=== PATIENT | female | born 1985 | race Caucasian/White ===

== ENCOUNTER 2020-02-01 13:25 | Inpatient (IN) | payer OTHER ==
[2020-02-01 14:29] VITALS: BMI 30.7
[2020-02-01 14:41] LABS: BASO % 0.6 % (0-2.0); EOS % 0.7 % (0-4.5); HEMATOCRIT 33.7 % (32.4-45.2); HEMOGLOBIN 11.6 GM/dL (10.7-15.3); LYMPH % 16.6 % (8-40); MCHC 34.5 g/dl (32.0-36.0); MEAN CELL VOLUME 95.5 fl (80-96); MONO % 8.3 % (3.8-10.2); NEUT % 73.8 % (42.8-82.8); PLATELET COUNT 166 K/MM3 (134-434); RBC 3.53 M/mm3 (3.60-5.2); RDW 14.6 % (11.6-15.6); WHITE BLOOD COUNT 12.3 K/mm3 (4.0-10.0)
[2020-02-01 14:53] LABS: INR 0.87 (0.83-1.09); PROTHROMBIN TIME (PATIENT) 10.3 SEC (9.7-13.0)
[2020-02-01 14:55] LABS: ACTIVATED PTT 22.3 SECONDS (25.2-36.5)
[2020-02-01 15:10] LABS: CALCIUM 8.8 mg/dL (8.5-10.1); CREATININE 0.5 mg/dL (0.55-1.3); POTASSIUM 3.9 mmol/L (3.5-5.1)
[2020-02-01] MEDS ORDERED: SODIUM CHLORIDE 100 ML IVPB ONE (15:56)
[2020-02-01] MEDS ORDERED: AMPICILLIN SODIUM 2 GM VIAL ONE (15:56)
[2020-02-01] MEDS ORDERED: AMPICILLIN - 2 GM in SODIUM CHLORIDE 100 ML IVPB ONE (16:06)
--- NOTE | 2020-02-01 16:12 | HP ---
Past Medical History - Admission Chief Complaint: Labor pain History of Present Illness: 34 yo @ 39 weeks gestation, EDC 02/08/20. admitted for labor pain. Upon admission she was 5cm dilated with intact membrane. History Source: Patient Limitations to Obtaining History: No Limitations - Past Medical History ...: 2 ...Para: 1 ...Term: 1 ...LMP: 05/04/19 ... Weeks Gestation by Dates: 38.5 ...EDC by Dates: 02/10/20 ...EDC by Sono: 02/06/20 - Past Surgical History Hx Myomectomy: No Hx Transabdominal Cerclage: No - Smoking History Smoking history: Never smoked Have you smoked in the past 12 months: No Aproximately how many cigarettes per day: 0 - Alcohol/Substance Use Hx Alcohol Use: No - Social History Usual Living Arrangement: Yes: With Significant Other History of Recent Travel: No Home Medications - Allergies Allergies/Adverse Reactions: Allergies Allergy/AdvReac Type Severity Reaction Status Date / Time No Known Allergies Allergy Verified 02/01/20 14:17 - Home Medications Home Medications: Ambulatory Orders Tablet 1 tab PO DAILY 02/01/20 Family Medical History Family History: Unremarkable Review of Systems - Review of Systems Constitutional: reports: No Symptoms HENT: reports: No Symptoms Neck: reports: No Symptoms Cardiovascular: reports: No Symptoms Respiratory: reports: No Symptoms Gastrointestinal: reports: No Symptoms Genitourinary: reports: Pain Musculoskeletal: reports: No Symptoms Neurological: reports: No Symptoms Psychiatric: reports: No Symptoms Pain Intensity: 5 Physical Exam - Maternity Vital Signs: Vital Signs Temperature 98.1 F 02/01/20 14:22 Pulse Rate 79 02/01/20 14:22 Respiratory Rate 02/01/20 14:22 Blood Pressure 134/80 02/01/20 14:22 O2 Sat by Pulse Oximetry (%) Constitutional: Yes: Well Nourished Eyes: Yes: Conjunctiva Clear HENT: Yes: Atraumatic Neck: Yes: Supple Cardiovascular: Yes: Regular Rate and Rhythm Lungs: Clear to auscultation - Abdominal Exam/OB Number of Fetuses: Single Presentation: Vertex Contractions: Yes - Vaginal Exam/OB Vaginal Bleeding: No Dilatation (cm): 5 Effacement (%): 80 Amniotic Membrane Status: Intact Presentation: Vertex/Position Station: -2 - Physical Exam Musculoskeletal: Yes: WNL Extremities: Yes: WNL ...Motor Strength: WNL Psychiatric: Yes: Alert, Oriented - Labs Lab Results: CBC, BMP 02/01/20 14:29 02/01/20 14:29 Problem List - Problems (1) 39 weeks gestation of Code(s): Z3A.39 - 39 WEEKS GESTATION OF Assessment/Plan 39 weeks gestation Admit to L&D Analgesia as needed Anticipate
[2020-02-01] MEDS ORDERED: ELECTROLYTE-148 SOLN 1,000 ML IV SCH (16:15)
[2020-02-01] MEDS ORDERED: OXYTOCIN 30 UNITS in 0.9% NS 30 UNIT/500 ML INFUS.BAG IVPB SCH (17:45)
[2020-02-01] MEDS ORDERED: OXYTOCIN 30 UNITS in 0.9% NS 30 UNIT/500 ML INFUS.BAG IVPB ONE (18:08)
[2020-02-01] MEDS ORDERED: BISACODYL 10 MG SUPP.RECT RC PRN (19:43)
[2020-02-01] MEDS ORDERED: BENZOCAINE 28 GM HEMORRHOIDAL OINTMENT TP PRN (19:43)
[2020-02-01] MEDS ORDERED: WITCH HAZEL 50% (TUCKS) 40 PAD/JAR PAD TP PRN (19:43)
[2020-02-01] MEDS ORDERED: BENZOCAINE 20% 57 GM BOTTLE TP PRN (19:43)
[2020-02-01] MEDS ORDERED: METHYLERGONOVINE MALEATE 0.2 MG/1 ML AMP IM PRN (19:43)
[2020-02-01] MEDS ORDERED: OXYTOCIN 20 UNITS in 0.9% NS 20 UNIT/1,000 ML INFUS.BAG IV SCH (19:45)
--- NOTE | 2020-02-01 19:48 | PN ---
Delivery - Delivery Vaginal Delivery: Spontaneous Episiotomy/Laceration: 1st degree EBL (cc): 300 Delivery, Single - 1 Minute Total Score: 9 5 Minutes Total Score: 9 - Feeding Plan Initial Plan: Elected not to breastfeed exclusively throughout hospitalization Remarks - Remarks Remarks: Normal spontaneous vaginal delivery of a live infant over first degree laceration. Nose / Oropharynx suctioned @ perineum. Cord clamped and cut. Baby handed to mother then to nurse. Laceration repaired with 2.0 Chromic. Mother in stable condition.
[2020-02-01] MEDS ORDERED: OXYTOCIN 20 UNITS in 0.9% NS 20 UNIT/1,000 ML INFUS.BAG IV ONE (20:06)
[2020-02-01] MEDS: FERROUS SO4 325 MG TABLET (FP) PO SCH (23:00)
[2020-02-02] MEDS: ACETAMINOPHEN 325 MG TABLET (FP) PO PRN ×3 (01:31→17:30)
[2020-02-02] MEDS: IBUPROFEN 600 MG TABLET (FP) PO PRN ×3 (01:31→17:30)
[2020-02-02 08:59] LABS: BASO % 0.4 % (0-2.0); HEMATOCRIT 32.2 % (32.4-45.2); HEMOGLOBIN 10.8 GM/dL (10.7-15.3); LYMPH % 16.9 % (8-40); MCH 31.9 pg (25.7-33.7); MCHC 33.5 g/dl (32.0-36.0); MEAN CELL VOLUME 95.3 fl (80-96); MEAN PLT VOLUME 9.6 fl (7.5-11.1); MONO % 9.3 % (3.8-10.2); NEUT % 72.4 % (42.8-82.8); PLATELET COUNT 162 K/MM3 (134-434); RBC 3.37 M/mm3 (3.60-5.2); RDW 14.4 % (11.6-15.6); WHITE BLOOD COUNT 13.2 K/mm3 (4.0-10.0)
[2020-02-02] MEDS: FERROUS SO4 325 MG TABLET (FP) PO SCH ×2 (10:31→21:42)
[2020-02-02] MEDS: PRENATAL VITAMINS W/ FOLIC ACID TABLET (FP) PO SCH (10:31)
--- NOTE | 2020-02-02 15:38 | PN ---
Post Progress Note - Subjective Subjective: 34 yo Para 2 status post normal vaginal delivery, seen and evaluated. Doing well. Post Day: 1 Type of Delivery: Vital Signs: Vital Signs Temperature 98 F 02/02/20 11:56 Pulse Rate 64 02/02/20 11:56 Respiratory Rate 18 02/02/20 11:56 Blood Pressure 106/63 02/02/20 11:56 O2 Sat by Pulse Oximetry (%) Breast Exam: Yes: Soft Uterus: Yes: Fundus Firm Abdomen/GI: Yes: Abdomen soft, Tolerating PO Lochia: Yes: Rubra Lochia, amount: Moderate Perineum: Yes: Intact Activity: Ambulating - Labs Labs: CBC WBC 13.2 K/mm3 (4.0-10.0) H 02/02/20 07:42 RBC 3.37 M/mm3 (3.60-5.2) L 02/02/20 07:42 Hgb 10.8 GM/dL (10.7-15.3) 02/02/20 07:42 Hct 32.2 % (32.4-45.2) L 02/02/20 07:42 MCV 95.3 fl (80-96) 02/02/20 07:42 MCH 31.9 pg (25.7-33.7) 02/02/20 07:42 MCHC 33.5 g/dl (32.0-36.0) 02/02/20 07:42 RDW 14.4 % (11.6-15.6) 02/02/20 07:42 Plt Count 162 K/MM3 (134-434) 02/02/20 07:42 MPV 9.6 fl (7.5-11.1) 02/02/20 07:42 Absolute Neuts (auto) 9.5 K/mm3 (1.5-8.0) H 02/02/20 07:42 Neutrophils % 72.4 % (42.8-82.8) 02/02/20 07:42 Lymphocytes % 16.9 % (8-40) 02/02/20 07:42 Monocytes % 9.3 % (3.8-10.2) 02/02/20 07:42 Eosinophils % 1.0 % (0-4.5) 02/02/20 07:42 Basophils % 0.4 % (0-2.0) 02/02/20 07:42 Nucleated RBC % 0 % (0-0) 02/02/20 07:42 Problem List - Problems (1) 39 weeks gestation of Code(s): Z3A.39 - 39 WEEKS GESTATION OF (2) Status post normal vaginal delivery Code(s): [id number] - Assessment/Plan Status post normal vaginal delivery Stable Continue routine care
[2020-02-02] MEDS ORDERED: SENNOSIDES/DOCUSATE COMBO (SENNA PLUS) TABLET (UD) PO PRN (22:00)
[2020-02-03 09:06] VITALS: BP 112/61; PULSE 64; TEMP 97.6
[2020-02-03] MEDS: PRENATAL VITAMINS W/ FOLIC ACID TABLET (FP) PO SCH (09:18)
[2020-02-03] MEDS: IBUPROFEN 600 MG TABLET (FP) PO PRN (09:18)
[2020-02-03] MEDS: FERROUS SO4 325 MG TABLET (FP) PO SCH (09:18)
[2020-02-03] MEDS: ACETAMINOPHEN 325 MG TABLET (FP) PO PRN (09:20)
--- NOTE | 2020-02-03 11:07 | DS ---
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: Vital Signs Temperature 97.6 F 02/03/20 09:05 Pulse Rate 64 02/03/20 09:05 Respiratory Rate 17 02/03/20 09:05 Blood Pressure 112/61 02/03/20 09:05 O2 Sat by Pulse Oximetry (%) Constitutional: Yes: Well Nourished Eyes: Yes: Conjunctiva Clear HENT: Yes: Atraumatic Neck: Yes: Supple Cardiovascular: Yes: Regular Rate and Rhythm Respiratory: Yes: Regular Gastrointestinal: Yes: Normal Bowel Sounds ...Rectal Exam: Yes: WNL Pelvis: Yes: WNL External Genitalia: Yes: Normal Vaginal Exam: Yes: Bleeding Cervix: Yes: Bleeding ....Post : Yes: Uterus firm, Moderate lochia serosa Breast(s): Yes: WNL Extremities: Yes: WNL Neurological: Yes: Alert, Oriented ...Motor Strength: WNL Psychiatric: Yes: Alert, Oriented Labs: CBC, BMP 02/02/20 07:42 02/01/20 14:29 Delivery - Delivery Vaginal Delivery: Spontaneous Type of Anesthesia: None Episiotomy/Laceration: 1st degree EBL (cc): 300 Delivery, Single - Stages of Labor Date 1st Stage Initiatied: 02/01/20 Time 1st Stage Initiated: 12:00 Date 2nd Stage Initiated: 02/01/20 Time 2nd Stage Initiated: 19:16 Date of Delivery: 02/01/20 Time of Delivery: 19:23 Time Placenta Delivered: 19:25 - Condition of Rn Cardiac/Catering Administrative Assistant Present: No Gender: Male Weight: 7 lb 14 oz Total Hours ROM (Hrs/Mins): 2/18 - 1 Minute Total Score: 9 5 Minutes Total Score: 9 - [place] Feeding Plan Initial Plan: Elected not to breastfeed exclusively throughout hospitalization Discharge Summary Problems reviewed: Yes Reason For Visit: ADMISSION OF LABOR Current Active Problems 39 weeks gestation of (Acute) Status post normal vaginal delivery (Acute) Procedures: Principal: Normal spontaneous vaginal delivery Hospital Course: Routine care Health Concerns: None Plan of Treatment: Analgesia as needed F/U with MD in 6 weeks Goals: Resume regular activities in 6 weeks Condition: Good - Instructions Diet, Activity, Other Instructions: Regular diet No douching, no sexual intercourse x 4 weeks F/U with MD in 6 weeks Disposition: HOME - Home Medications Comprehensive Discharge Medication List: Ambulatory Orders Tablet 1 tab PO DAILY 02/01/20
== END 2020-02-03 12:25 | disposition home or self-care (01) | DRG 560 ==
LOC: JLDR 13:25 → J3W 21:40
PROVIDERS: ADMIT Obstetrics & Gynecology; ATTEND Obstetrics & Gynecology
PROC: 10E0XZZ Delivery of Products of Conception, External Approach (ICD-10-PCS; principal; 2020-02-01)
PROC: 0HQ9XZZ Repair Perineum Skin, External Approach (ICD-10-PCS; 2020-02-01)
DX: O24.420 Gestational diabetes mellitus in childbirth, diet controlled (principal); O70.0 First degree perineal laceration during delivery; Z3A.39 39 weeks gestation of pregnancy; Z37.0 Single live birth
CPT/HCPCS: 36415; 59409; 80048; 85025; 85610; 85730; 86780; 86850; 86900; 86901; 87389; U0003